=== PATIENT | male | born 1955 | race Caucasian/White ===

== ENCOUNTER 2018-11-09 15:35 | Inpatient (IN) | payer OTHER, BC ==
[~2018-11-09 15:35] MED LIST: SUCCINYLCHOLINE CHLORIDE INJ 200 MG/10 ML VIAL ONE
[2018-11-09] MEDS: CLINDAMYCIN 600 MG/D5W RTU 600 MG/50 ML RTUPB IV SCH (16:23)
[2018-11-09] MEDS ORDERED: LIDOCAINE 2% INJ-PF (20 MG/ML) 10 ML AMPUL ONE (16:24)
[2018-11-09] MEDS ORDERED: FENTANYL CITRATE INJ/PF 100 MCG/2 ML AMPUL ONE (16:24)
[2018-11-09] MEDS ORDERED: MIDAZOLAM 2 MG/2 ML INJ ONE (16:25)
[2018-11-09] MEDS ORDERED: PROPOFOL INJ 200 MG/20 ML VIAL IV ONE (16:25)
[2018-11-09] MEDS ORDERED: ONDANSETRON HCL INJ/PF 4 MG/2 ML SDV ONE (16:25)
[2018-11-09] MEDS ORDERED: DEXAMETHASONE SOD PHOSPHATE INJ 4 MG/1 ML VIAL ONE (16:25)
[2018-11-09 16:33] LABS: ABSOLUTE EOSINOPHILS # (AUTO) 0.1 10^3/uL (0.0-0.6); ABSOLUTE LYMPHOCYTES (AUTO) 1.8 10^3/uL (0.5-4.7); ABSOLUTE MONOCYTES (AUTO) 0.4 10^3/uL (0.1-1.4); ABSOLUTE NEUT (AUTO) 3.9 10^3/uL (1.7-8.2); BASOPHILS % (AUTO) 0.5 % (0-2); EOSINOPHILS % (AUTO) 1.3 % (0-6); HEMATOCRIT 38.2 % (37.9-51.0); HEMOGLOBIN 13.1 g/dL (13.5-17.0); LYMPHOCYTES % (AUTO) 29.3 % (13-45); MEAN CORPUSCULAR HEMOGLOBIN 31.8 pg (27.0-33.4); MEAN CORPUSCULAR HGB CONC 34.4 g/dL (32.0-36.0); MEAN CORPUSCULAR VOLUME 93 fl (80-97); MONOCYTES % (AUTO) 6.1 % (3-13); PLATELET COUNT 274 10^3/uL (150-450); RED BLOOD COUNT 4.13 10^6/uL (4.35-5.55); RED CELL DISTRIBUTION WIDTH 13.3 % (11.5-14.0); SEGMENTED NEUTROPHILS % (AUTO) 62.8 % (42-78); TOTAL CELLS COUNTED % (AUTO) 100 %; WHITE BLOOD COUNT 6.3 10^3/uL (4.0-10.5)
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
[2018-11-09] MEDS ORDERED: LIDOCAINE 1%/EPINEPHRINE INJ 20 ML VIAL ONE (16:47)
[2018-11-09 16:52] LABS: ALANINE AMINOTRANSFERASE 21 U/L (21-72); ALKALINE PHOSPHATASE 64 U/L (38-126); ANION GAP 10 (5-19); ASPARTATE AMINO TRANSFERASE 28 U/L (17-59); BILIRUBIN,DIRECT 0.3 mg/dL (0.0-0.4); BILIRUBIN,TOTAL 0.4 mg/dL (0.2-1.3); BLOOD UREA NITROGEN 15 mg/dL (7-20); CALCIUM 8.6 mg/dL (8.4-10.2); CARBON DIOXIDE 23 mmol/L (22-30); CHLORIDE 110 mmol/L (98-107); GLUCOSE 92 mg/dL (75-110); POTASSIUM 3.8 mmol/L (3.6-5.0); SODIUM 142.5 mmol/L (137-145)
[2018-11-09 16:55] LABS: ACETAMINOPHEN < 10 ug/mL (10-30); ALCOHOL < 10 mg/dL (NONE DETECTED); SALICYLATE < 1.0 mg/dL (2.0-20.0)
[2018-11-09] MEDS ORDERED: DEXMEDETOMIDINE INJ 80 MCG/20 ML VIAL IV ONE (17:03)
--- NOTE | 2018-11-09 17:24 | PSYCHOLOGICAL NOTE ---
Psych Note - Psych Note Date seen by psych provider: 11/09/18 Psych Note: Presenting Problem: SI attempt via cutting both arms with [facility] blade [facility]. He cut both arms inner elbow where arm bends and his neck. Arm Lacerations required OR. Obtained collateral from , Kimberley ([phone]) and son who were on site initially. [facility]. He is prescribed Cymbalta, Buspar and Gabapentin as well as numerous other medical medications. Diagnosis: SI attempt via cutting MDD by history per [facility] Medication recommendations made by the psychiatric medical provider, Dr. Magan MD., includes: Decrease Cymbalta to 30MG daily Decrease Gabapentin to 600MG three times a day Decrease Buspar to 5MG twice a day Impression/Plan: Recommendation to IVC patient. He cut both arms inner elbow where arm beds with a razor blade which resulted in having to go to the OR. He removed dressings initially trying to continue to bleed out. He has a diagnosis of MDD, is prescribed medications and [facility] Consulted with Dr. Harper regarding the management and care of patient. ED Physician in agreement with recommendations.
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
[2018-11-09] MEDS ORDERED: DIPHENHYDRAMINE HCL 50 MG/ML VIAL IV PRN (17:42)
[2018-11-09] MEDS ORDERED: PROMETHAZINE HCL INJ 25 MG/1 ML VIAL IV PRN (17:42)
[2018-11-09] MEDS ORDERED: FENTANYL CITRATE INJ/PF 100 MCG/2 ML AMPUL IV PRN ×3 (17:42)
[2018-11-09] MEDS ORDERED: MORPHINE SULFATE 10 MG/ML INJ IV PRN (17:42)
[2018-11-09] MEDS ORDERED: MEPERIDINE HCL/PF INJ 25 MG/1 ML DISP.SYRIN IV PRN (17:42)
[2018-11-09] MEDS ORDERED: KETOROLAC TROMETHAMINE 10 MG TABLET PO PRN (17:59)
[2018-11-09] MEDS ORDERED: ONDANSETRON HCL INJ/PF 4 MG/2 ML SDV IV PRN (17:59)
--- NOTE | 2018-11-09 18:10 | Operative Report ---
Operative Report DATE OF SURGERY: 11/09/18 PREOPERATIVE DIAGNOSIS: Bilateral upper extremity antecubital fossa lacerations with active bleeding from the left arm POSTOPERATIVE DIAGNOSIS: Same with laceration to the left median- cubital vein OPERATION: 1. Left arm exploration, closure of median cubital vein laceration, and closure of wound, 10 cm. 2. Closure of second laceration left upper extremity, 5 cm. 3. Closure of right upper extremity antecubital fossa 10 cm laceration SURGEON: AMIRAH OHARA ANESTHESIA: GA TISSUE REMOVED OR ALTERED: Clot COMPLICATIONS: None ESTIMATED BLOOD LOSS: 100 cc INTRAOPERATIVE FINDINGS: See below PROCEDURE: The patient was seen in the emergency department by Dr. Ohara. At that time patient had a tourniquet on his upper arm proximal to the antecubital fossa. The tourniquet was removed, but the heavy elastic compression dressing remained intact over the antecubital fossa. The patient was brought to the main operating room where general anesthesia was induced. The right arm also had a antecubital fossa laceration which was superficial into the subcutaneous tissue only. The left arm compression dressing was removed and there was immediately a significant amount of venous bleeding coming from the open incision. Direct compression was applied, and the left upper extremity prepped and draped in sterile fashion. No further tourniquets were used during the operation. With direct pressure held over the bleeding site, I opened the subcutaneous tissue in the previously made 10 cm transverse antecubital fossa incision. This enabled me to exposed the bleeding site which was in fact the median cubital vein which was of substantial caliber approximately 6 to 7 mm diameter. There was now oxygenated blood coming from both proximally and distally. I looked looked deep to this area and there was no evidence of violation of the ap oneurosis or fascia. Therefore the cubital deep space was not opened, and we were distal to the steps brachii aponeurosis. I placed vascular clamps on the proximal distal ends of this vessel, then replaced these with Vesseloops. Laceration to this vessel was approximately 70% of the conference. I felt the primary repair with a running 6-0 Prolene suture would be appropriate. Both proximal distal limbs were flushed with heparinized saline, and the laceration was closed transversely with a running 6-0 Prolene suture. Upon release of the ties, flow was restored through the vessel. The signal right through the repair site was pulsatile in nature. Explanation for this finding was somewhat peculiar. Nonetheless we assessed the patient's circulation distally at the level of the hand and there were Doppler pulses both the radial and ulnar arteries. Eventually as the hand pinked up, the radial and ulnar pulses were both palpable. Since there was no violation of the deep space, no expanding hematoma, I felt that the operation from a hemorrhagic control standpoint was complete. Her graph we are now looking into lacerations 1 proximal to the antecubital fossa, running transversely, 5 cm, and the primary, 10 cm laceration through which we repaired the median cubital vein. The proximal laceration was closed with a running 4-0 Ethilon suture. A small portion of Nia drain was placed in the more distal, 10 cm laceration and this was closed in a similar fashion with a running 4-0 Ethilon suture. There was no evidence of hematoma. The patient maintain excellent circulation to the hand again with palpable pulses at the wrist. We now closed the right upper extremity antecubital fossa, 5 cm, with a running 4-0 Ethilon suture. Sterile dressings were applied with Xeroform 4 x 4's and Kerlix. Patient tolerated procedure well, extubated, taken recovery in stable condition.
[2018-11-09] MEDS ORDERED: LORAZEPAM INJ 2 MG/1 ML VIAL IV PRN (18:41)
[2018-11-09] MEDS ORDERED: HALOPERIDOL LACTATE INJ 5 MG/1 ML VIAL IV PRN (18:41)
[2018-11-09] MEDS: DOCUSATE SODIUM 100 MG CAPSULE PO SCH (19:01)
[2018-11-09 21:37] LABS: URINE AMPHETAMINES SCREEN NEGATIVE; URINE BARBITURATES SCREEN NEGATIVE; URINE BENZODIAZEPINES SCREEN UNCONFIRMED POSITIVE; URINE COCAINE SCREEN NEGATIVE; URINE MARIJUANA (THC) SCREEN NEGATIVE; URINE METHADONE SCREEN NEGATIVE; URINE PHENCYCLIDINE SCREEN NEGATIVE
[2018-11-09 21:42] LABS: APPEARANCE,URINE CLEAR; COLOR,URINE YELLOW
[2018-11-09 21:43] LABS: BILIRUBIN,URINE NEGATIVE (NEGATIVE); GLUCOSE, URINE NEGATIVE (NEGATIVE); KETONES,URINE NEGATIVE (NEGATIVE); LEUKOCYTE ESTERASE,URINE NEGATIVE (NEGATIVE); NITRITE,URINE NEGATIVE (NEGATIVE); PROTEIN,URINE NEGATIVE (NEGATIVE); URINE SPECIFIC GRAVITY 1.026; UROBILINOGEN,URINE NEGATIVE mg/dL (<2.0)
[2018-11-10] MEDS: CLINDAMYCIN 600 MG/D5W RTU 600 MG/50 ML RTUPB IV SCH ×4 (02:04→17:57)
[2018-11-10] MEDS ORDERED: ACETAMINOPHEN 325 MG TABLET PO PRN (08:08)
[2018-11-10] MEDS ORDERED: (PENDING PHARMACY ID) (Naproxen [Naprosyn] 500 MG) PO PRN (08:08)
[2018-11-10] MEDS ORDERED: NAPROXEN 250 MG TABLET PO PRN (08:47)
[2018-11-10] MEDS ORDERED: (PENDING PHARMACY ID) (Ketoconazole [Ketoconazole] 1 APPLIC) TOP SCH (10:00)
[2018-11-10] MEDS: DOCUSATE SODIUM 100 MG CAPSULE PO SCH ×2 (10:25→17:54)
[2018-11-10] MEDS: DOXAZOSIN MESYLATE 2 MG TABLET PO SCH (10:26)
[2018-11-10] MEDS: BUSPIRONE HCL 10 MG TABLET PO SCH ×2 (10:26→21:38)
[2018-11-10] MEDS: FINASTERIDE 5 MG TABLET PO SCH (10:27)
[2018-11-10] MEDS: DULOXETINE HCL 30 MG CAPSULE.DR PO SCH (10:27)
[2018-11-10] MEDS: ALENDRONATE SODIUM 10 MG TABLET PO SCH (10:27)
[2018-11-10] MEDS: KETOCONAZOLE 2% SHAMPOO 120 ML BOTTLE TOP SCH (10:30)
[2018-11-10] MEDS ORDERED: GABAPENTIN 300 MG CAPSULE PO ONE (10:30)
--- NOTE | 2018-11-10 10:43 | PDOC PROGRESS REPORT ---
Subjective Progress Note for:: 11/10/18 Reason For Visit: ATTEMPTED SUICIDE, BILATERAL LACERATION TO R AND L Physical Exam Vital Signs: Temp Pulse Resp BP Pulse Ox 97.7 F 79 18 124/84 93 11/10/18 07:48 11/10/18 07:48 11/10/18 07:48 11/10/18 07:48 11/10/18 07:48 Intake & Output 11/09/18 11/10/18 11/11/18 06:59 06:59 06:59 Intake Total 2100 Output Total 900 Balance 1200 Weight 102 kg Results Laboratory Results: 11/09/18 16:10 11/09/18 16:10 11/09/18 11/09/18 11/09/18 16:10 16:10 16:10 WBC 6.3 RBC 4.13 L Hgb 13.1 L Hct 38.2 MCV 93 MCH 31.8 MCHC 34.4 RDW 13.3 Plt Count 274 Seg Neutrophils % 62.8 Lymphocytes % 29.3 Monocytes % 6.1 Eosinophils % 1.3 Basophils % 0.5 Absolute Neutrophils 3.9 Absolute Lymphocytes 1.8 Absolute Monocytes 0.4 Absolute Eosinophils 0.1 Absolute Basophils 0.0 Sodium 142.5 Potassium 3.8 Chloride 110 H Carbon Dioxide 23 Anion Gap 10 BUN 15 Creatinine 0.86 Est GFR ( Amer) > 60 Est GFR (Non-Af Amer) > 60 Glucose 92 Calcium 8.6 Total Bilirubin 0.4 AST 28 ALT 21 Alkaline Phosphatase 64 Total Protein 7.0 Albumin 4.0 Urine Color Urine Appearance Urine pH Ur Specific [place] Urine Protein Urine Glucose (UA) Urine Ketones Urine Blood Urine Nitrite Ur Leukocyte Esterase Urine WBC (Auto) Urine RBC (Auto) Blood Type A POSITIVE Antibody Screen NEGATIVE 11/09/18 21:00 WBC RBC Hgb Hct MCV MCH MCHC RDW Plt Count Seg Neutrophils % Lymphocytes % Monocytes % Eosinophils % Basophils % Absolute Neutrophils Absolute Lymphocytes Absolute Monocytes Absolute Eosinophils Absolute Basophils Sodium Potassium Chloride Carbon Dioxide Anion Gap BUN Creatinine Est GFR ( Amer) Est GFR (Non-Af Amer) Glucose Calcium Total Bilirubin AST ALT Alkaline Phosphatase Total Protein Albumin Urine Color YELLOW Urine Appearance CLEAR Urine pH 5.0 Ur Specific [place] 1.026 Urine Protein NEGATIVE Urine Glucose (UA) NEGATIVE Urine Ketones NEGATIVE Urine Blood NEGATIVE Urine Nitrite NEGATIVE Ur Leukocyte Esterase NEGATIVE Urine WBC (Auto) 1 Urine RBC (Auto) 1 Blood Type Antibody Screen Assessment & Plan - Diagnosis (1) Laceration L/R arms suicidal intention Is this a current diagnosis for this admission?: Yes - Plan Summary Plan Summary: This is a 62-year-old male status post suicide attempt. The patient had lacerations to the right arm, left arm, and left neck. The patient's wounds were inspected today. They are closed, without signs of infection (erythema, induration, or purulence). The sutures remain intact. There is no bleeding. I have recommended dry dressing changes daily. The patient appears to have normal motor and sensory function of his upper extremities. The patient will be able to shower tomorrow afternoon. The patient will require a psych consultation due to the suicide attempt. Continue with inpatient admission until psychiatric evaluation can be completed.
[2018-11-10] MEDS ORDERED: PANTOPRAZOLE SODIUM 40 MG TABLET.DR PO ONE (10:45)
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
[2018-11-10] MEDS ORDERED: GABAPENTIN 900 MG PO SCH (14:00)
[2018-11-10] MEDS: GABAPENTIN 300 MG CAPSULE PO SCH ×2 (15:16→21:38)
[2018-11-10] MEDS: PANTOPRAZOLE SODIUM 40 MG TABLET.DR PO SCH (16:24)
[2018-11-11] MEDS: CLINDAMYCIN 600 MG/D5W RTU 600 MG/50 ML RTUPB IV SCH ×3 (01:21→18:12)
[2018-11-11] MEDS: GABAPENTIN 300 MG CAPSULE PO SCH ×3 (05:16→22:16)
[2018-11-11] MEDS: PANTOPRAZOLE SODIUM 40 MG TABLET.DR PO SCH ×2 (08:57→16:16)
[2018-11-11] MEDS: BUSPIRONE HCL 10 MG TABLET PO SCH ×2 (10:30→22:16)
[2018-11-11] MEDS: FINASTERIDE 5 MG TABLET PO SCH (10:30)
[2018-11-11] MEDS: DULOXETINE HCL 30 MG CAPSULE.DR PO SCH (10:31)
[2018-11-11] MEDS: DOCUSATE SODIUM 100 MG CAPSULE PO SCH ×2 (10:31→18:11)
[2018-11-11] MEDS: DOXAZOSIN MESYLATE 2 MG TABLET PO SCH (10:33)
[2018-11-11] MEDS: ALENDRONATE SODIUM 10 MG TABLET PO SCH (10:33)
[2018-11-11] MEDS: KETOCONAZOLE 2% SHAMPOO 120 ML BOTTLE TOP SCH (10:39)
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
--- NOTE | 2018-11-11 13:56 | PSYCHOLOGICAL NOTE ---
Psych Note - Psych Note Date seen by psych provider: 11/11/18 Psych Note: Presenting Problem: IVC, SI attempt via cutting both [facility]. He cut both arms inner elbow where arm bends and his neck. Arm Lacerations required OR. Obtained collateral from , Kimberley ([phone]) and son who were on site initially. [facility]. He is prescribed Cymbalta, Buspar and Gabapentin as well as numerous other medical medications. Medication recommendations provided 11/09/18, however patient went to OR/surgery right away. Per Attending Hospitalist 11/11/18 progress note patient medically cleared tomorrow (11/12/18) and confirmed via telephone interaction with this clinician. Will seek inpatient hospitalization with [facility]. This clinician started getting referral packet together today. Today patient reported he was at his therapist office. He stated he planned what he did. He reported yes and no to being upset about still being alive. When asked if he still wanted to take his life he commented "I am pretty calm about it now." He identified he has been on the same medications for a long time. He presented melancholy and nonchalant about the suicide attempt. He had flat affect. Diagnosis: SI attempt via cutting MDD by history per [facility] documentation Medication recommendations made by the psychiatric medical provider, Dr. Magan MD., includes: Provided 11/09/18 Decrease Cymbalta to 30MG daily Decrease Gabapentin to 600MG three times a day Decrease Buspar to 5MG twice a day Impression/Plan: Recommendation to maintain IVC. Once medically cleared (supposed to take place tomorrow) will make referral to [facility]. Patient made aware of this. Consulted with Dr. Harper regarding the management and care of patient. Attending Hospitalist made aware of recommendations.
--- NOTE | 2018-11-11 16:30 | PDOC PROGRESS REPORT ---
Subjective Progress Note for:: 11/11/18 Reason For Visit: ATTEMPTED SUICIDE, BILATERAL LACERATION TO R AND L Physical Exam Vital Signs: Temp Pulse Resp BP Pulse Ox 98.2 F 74 16 157/93 H 97 11/10/18 23:00 11/11/18 11:36 11/11/18 11:36 11/11/18 11:36 11/11/18 11:36 Intake & Output 11/10/18 11/11/18 11/12/18 06:59 06:59 06:59 Intake Total 2100 626 530 Output Total 900 300 850 Balance 1200 326 -320 Weight 102 kg 102 kg Results Laboratory Results: 11/09/18 16:10 11/09/18 16:10 Assessment & Plan - Diagnosis (1) Laceration L/R arms suicidal intention Is this a current diagnosis for this admission?: Yes - Plan Summary Plan Summary: This is a 62-year-old male status post suicide attempt. He is 2 days postop from closure of his superficial arm and neck lacerations. His wounds appear to be healing well. He has normal motor and sensory function. Continue with dry dressing changes daily. He may shower normally tomorrow. I have discussed the case with Dr. Jorgensen. He is working to arrange discharge to a [place] inpatient psychiatric facility. Continue with current therapies.
[2018-11-12] MEDS: CLINDAMYCIN 600 MG/D5W RTU 600 MG/50 ML RTUPB IV SCH ×3 (02:38→17:08)
[2018-11-12] MEDS: GABAPENTIN 300 MG CAPSULE PO SCH ×3 (06:13→21:13)
[2018-11-12] MEDS: PANTOPRAZOLE SODIUM 40 MG TABLET.DR PO SCH ×2 (07:45→17:08)
--- NOTE | 2018-11-12 09:37 | PDOC PROGRESS REPORT ---
Subjective Progress Note for:: 11/12/18 Subjective:: No complaints Reason For Visit: ATTEMPTED SUICIDE, BILATERAL LACERATION TO R AND L Physical Exam Vital Signs: Temp Pulse Resp BP Pulse Ox 97.7 F 66 14 176/73 H 94 11/12/18 07:00 11/12/18 07:00 11/12/18 07:00 11/12/18 07:00 11/12/18 07:00 Intake & Output 11/11/18 11/12/18 11/13/18 06:59 06:59 06:59 Intake Total 626 1770 Output Total 300 2600 Balance 326 -830 Weight 102 kg 104 kg General appearance: PRESENT: no acute distress Musculoskeletal exam: PRESENT: other - Operative incisions are healing satisfactorily; dressings removed; excellent circulation in the left wrist, left hand, with palpable radial and ulnar pulses. Results Laboratory Results: 11/09/18 16:10 11/09/18 16:10 Assessment & Plan - Diagnosis (1) Laceration of left upper extremity Is this a current diagnosis for this admission?: Yes Plan: Impression: Patient is postoperative day 3 status post repair of upper extremity lacerations, doing well, wounds healing satisfactorily, with excellent distal circulation. Recommendations: 1. Patient may be discharged to psychiatric facility 2. Patient can follow-up with [place] [facility] in 1-2 week for suture removal. (2) Psychiatric disturbance Is this a current diagnosis for this admission?: Yes
[2018-11-12] MEDS: DULOXETINE HCL 30 MG CAPSULE.DR PO SCH (10:17)
[2018-11-12] MEDS: ALENDRONATE SODIUM 10 MG TABLET PO SCH (10:17)
[2018-11-12] MEDS: DOXAZOSIN MESYLATE 2 MG TABLET PO SCH (10:18)
[2018-11-12] MEDS: DOCUSATE SODIUM 100 MG CAPSULE PO SCH ×2 (10:18→17:08)
[2018-11-12] MEDS: BUSPIRONE HCL 10 MG TABLET PO SCH ×2 (10:18→21:14)
[2018-11-12] MEDS: FINASTERIDE 5 MG TABLET PO SCH (10:18)
[2018-11-12] MEDS: KETOCONAZOLE 2% SHAMPOO 120 ML BOTTLE TOP SCH (10:35)
--- NOTE | 2018-11-12 14:12 | Progress Note ---
Provider Note Provider Note: Patient is seen and examined while resting in bed comfortably. His vital signs and blood works are stable. Patient is medically and surgically cleared for discharge today.
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
[2018-11-13] MEDS: CLINDAMYCIN 600 MG/D5W RTU 600 MG/50 ML RTUPB IV SCH ×2 (02:50→11:13)
[2018-11-13] MEDS: GABAPENTIN 300 MG CAPSULE PO SCH (06:43)
--- NOTE | 2018-11-13 06:59 | PSYCHOLOGICAL NOTE ---
Psych Note - Psych Note Date seen by psych provider: 11/12/18 Psych Note: Presenting Problem: IVC, SI attempt via cutting both arms with a [facility] on [facility]/18. He cut both arms inner elbow where arm bends and his neck. Arm Lacerations required OR. Obtained collateral from , Kimberley ([phone]) and son who were on site initially. [facility]. He is prescribed Cymbalta, Buspar and Gabapentin as well as numerous other medical medications. Recommendation since Monday (11/09/18) was to reduce all these). Yesterday he was melancholy and nonchalant about his suicide attempt but admitted he planned it. Josefina from local [place] clinic called for care coordination purposes. Diagnosis: SI attempt via cutting MDD by history per [facility] documentation Medication recommendations made by the psychiatric medical provider, Dr. Magan MD., includes: Provided 11/09/18 Decrease Cymbalta to 30MG daily Decrease Gabapentin to 600MG three times a day Decrease Buspar to 5MG twice a day Impression/Plan: Recommendation to maintain IVC. Today he is medically cleared so inpatient placement can start. [facility]. Coordinating care with Josefina at local [place] [facility]. Consulted with Dr. Harper regarding the management and care of patient. Attending Hospitalist in agreement with recommendations and signed off on [facility] paperwork.
[2018-11-13] MEDS: PANTOPRAZOLE SODIUM 40 MG TABLET.DR PO SCH (08:16)
[2018-11-13] MEDS: DOCUSATE SODIUM 100 MG CAPSULE PO SCH (10:09)
[2018-11-13] MEDS: FINASTERIDE 5 MG TABLET PO SCH (10:09)
[2018-11-13] MEDS: DULOXETINE HCL 30 MG CAPSULE.DR PO SCH (10:09)
[2018-11-13] MEDS: BUSPIRONE HCL 10 MG TABLET PO SCH (10:09)
[2018-11-13] MEDS: DOXAZOSIN MESYLATE 2 MG TABLET PO SCH (10:10)
[2018-11-13] MEDS: ALENDRONATE SODIUM 10 MG TABLET PO SCH (10:10)
[2018-11-13 10:43] VITALS: BP 147/89
[2018-11-13] MEDS: KETOCONAZOLE 2% SHAMPOO 120 ML BOTTLE TOP SCH (11:14)
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
== END 2018-11-13 13:25 | DRG 909 ==
LOC: OROUT 15:35 → 4W 18:46 → OROUT 19:15 → 5 11-12 10:41
PROVIDERS: ADMIT Internal Medicine; ATTEND Internal Medicine
PROC: 0XQB0ZZ Repair Right Elbow Region, Open Approach (ICD-10-PCS; 2018-11-09)
PROC: 05Q Upper Veins, Repair (ICD-10-PCS; principal; 2018-11-09 16:45)
DX: S55.212A Laceration of vein at forearm level, left arm, initial encounter (principal); S51.012A Laceration without foreign body of left elbow, initial encounter; Z88.0 Allergy status to penicillin; S51.011A Laceration without foreign body of right elbow, initial encounter; W26.8XXA Contact with other sharp object(s), not elsewhere classified, initial encounter; F32.9 Major depressive disorder, single episode, unspecified; F17.210 Nicotine dependence, cigarettes, uncomplicated; F10.20 Alcohol dependence, uncomplicated; S11.91XA Laceration without foreign body of unspecified part of neck, initial encounter; Z88.6 Allergy status to analgesic agent
CPT/HCPCS: 36415; 80053; 80307; 81001; 85025; 86850; 86900; 86901; J0330; J1100; J1644; J2250; J2405; J2704; J3010; J3490